=== PATIENT | male | born 1955 | race Caucasian/White ===

== ENCOUNTER 2016-11-29 16:01 | Emergency (ER) ==
[2016-11-29 16:12] VITALS: BP 156/73; TEMP 96.3; BMI 27.6
[2016-11-29] MEDS ORDERED: SODIUM CHLORIDE 1,000 ML IV STA (16:33)
--- NOTE | 2016-11-29 16:35 | ED.PDOC ---
General ED Provider: Dr. RED REAGAN Chief Complaint: Dizziness Stated Complaint: Nausea, vomiting several times since last night; lightheaded Time Seen by Physician: 16:20 Mode of Arrival: Stretcher Information Source: Patient Primary Care Provider: JORDYN COOMBS Nursing and Triage Documentation Reviewed and Agree: Yes Review of Systems - Review Of Systems Constitutional: Reports: Loss of appetite (nausea/dry heaving (since last night) ) Eyes: Reports: No symptoms Ears, Nose, Mouth, Throat: Reports: No symptoms Respiratory: Reports: No symptoms Cardiac: Reports: No symptoms GI: Reports: Nausea, Vomiting. Denies: Diarrhea : Reports: No symptoms Musculoskeletal: Reports: No symptoms Skin: Reports: No symptoms All Other Systems: Reviewed and Negative Past Medical History - Past Medical History Previously Healthy: Yes Endocrine: Reports: Dyslipidemia Cardiovascular: Reports: Hypertension Respiratory: Reports: Asthma Hematological: Reports: None Gastrointestinal: Reports: None Genitourinary: Reports: None Neuro/Psych: Reports: None Musculoskeletal: Reports: None Cancer: Reports: None - Surgical History General Surgical History: Reports: None - Family History Family History: Reports: Unknown - Social History Smoking Status: Former smoker Hx Substance Use: No Alcohol Screening: None Physical Exam - Physical Exam Appearance: Well-appearing Eyes: BRIANA, EOMI ENT: Oropharynx normal Neck: Supple (No carotid bruits) Respiratory: Breath sounds equal, Respirations nonlabored Cardiovascular: RRR, Pulses normal (Bilaterall radial pulses ) Skin: Warm, Dry, Normal color Psychiatric: Affect appropriate, Mood appropriate Interpretation - EKG Interpretation Time of EKG #1: 16:36 Rate: Normal (65) Rhythm: Sinus Ectopy: None Critical Care Note - Critical Care Note Total Time (mins): 25 Course - Course Hematology/Chemistry: 11/29/16 16:35 11/29/16 16:35 Orders, Labs, Meds: Lab Review 11/29/16 16:35 WBC 10.54 H RBC 4.69 L Hgb 14.9 Hct 42.6 MCV 90.8 MCH 31.8 H MCHC 35.0 RDW Coeff of Jorge 12.5 Plt Count 167 Immature Gran % (Auto) 0.4 Neut % (Auto) 80.5 Lymph % (Auto) 13.4 [place] % (Auto) 4.0 Eos % (Auto) 1.0 Baso % (Auto) 0.7 Immature Gran # (Auto) 0.0 Neut # 8.5 H Lymph # 1.4 [place] # 0.4 Eos # 0.1 Baso # 0.1 Sodium 142 Potassium 4.3 Chloride 104 Carbon Dioxide 27 Anion Gap 15.3 BUN 11 Creatinine 1.03 Estimated GFR (MDRD) 73.00 BUN/Creatinine Ratio 10.67 Glucose 122 H Calcium 9.6 Total Bilirubin 1.59 H AST 20 ALT 23 Alkaline Phosphatase 87 Troponin I < 0.0100 Total Protein 7.3 Albumin 4.2 Globulin 3.1 Albumin/Globulin Ratio 1.35 Orders Category Date Time Status EKG-(ED ONLY) Stat CARDIO 11/29/16 16:48 Completed CBC W/ AUTO DIFF Stat LAB 11/29/16 16:35 Completed COMPREHENSIVE METABOLIC PANEL Stat LAB 11/29/16 16:35 Completed TROPONIN I Stat LAB 11/29/16 16:35 Completed Meclizine HCl [Antivert] MEDS 11/29/16 18:08 Discontinued 25 mg .ROUTE .STK-MED ONE Meclizine HCl [Antivert] MEDS 11/29/16 18:05 Discontinued 25 mg PO ONCE STA Sodium Chloride 0.9% [Sodium Chloride] 1,000 ml MEDS 11/29/16 16:33 Discontinued IV BOLUS CHEST, 2 VIEWS PA & LAT Stat RADS 11/29/16 16:30 Completed Medications Discontinued Medications Generic Name Dose Route Start Last Admin Trade Name Freq PRN Reason Stop Dose Admin Sodium Chloride 1,000 mls @ 1,000 mls/hr 11/29/16 16:33 11/29/16 16:41 Sodium Chloride IV 11/29/16 17:32 1,000 mls/hr BOLUS STA Administration Meclizine HCl 25 mg 11/29/16 18:05 11/29/16 18:14 Antivert PO 11/29/16 18:06 25 mg ONCE STA Administration Vital Signs: Temp Pulse Resp BP Pulse Ox 11/29/16 16:06 96.3 F L 67 31 H 156/73 H 28 L Departure - Departure Time of Disposition: 18:08 Disposition: HOME SELF-CARE Discharge Problem: Gastritis, Vertigo Instructions: Gastritis (ED), Vertigo (ED) Condition: Good Pt referred to PMD for follow-up: Yes (Call for appointment) Additional Instructions: Take the Meclazine (Antivert) 2 to 4 hours before bedtime tonight; see if it helps with light headedness or vertigo/dizziness. If so may fill prescription tomorrow. Call Dr Coombs's office Thursday and advise them how you are doing. Allergies/Adverse Reactions: Allergies No Known Allergies Allergy (Verified 11/29/16 16:14) Home Medications: Ambulatory Orders Lisinopril/Hydrochlorothiazide [Lisinopril-Hctz 20-12.5 mg Tab] 20 mg PO DAILY 05/16/14 Rosuvastatin Calcium [Crestor] 20 mg PO DAILY 05/16/14 Albuterol Sulfate [Proair Respiclick] 90 mcg IH DIRECTED PRN 11/29/16 Disposition Discussed With: Patient, Family ()
[2016-11-29 16:46] LABS: BASOPHILS # (AUTO) 0.1 K/uL (0-0.2); BASOPHILS % (AUTO) 0.7 % (0.0-3.0); EOSINOPHILS # (AUTO) 0.1 K/ul (0.0-0.7); HEMATOCRIT 42.6 % (42.0-52.0); HEMOGLOBIN 14.9 g/dl (14.0-18.0); IMMATURE GRANULOCYTE % (AUTO) 0.4 % (0.0-5.0); LYMPHOCYTES # (AUTO) 1.4 K/uL (0.60-3.4); LYMPHOCYTES % (AUTO) 13.4 (10.0-50.0); MEAN CORPUSCULAR HEMOGLOBIN 31.8 pg (27.0-31.0); MEAN CORPUSCULAR VOLUME 90.8 fl (80.0-94.0); MONOCYTES # (AUTO) 0.4 K/uL (0.4-2.0); NEUTROPHILS # (AUTO) 8.5 K/ul (2.0-6.9); NEUTROPHILS % (AUTO) 80.5; PLATELET COUNT 167 10^3/uL (140-440); RED BLOOD COUNT 4.69 10^6/ul (4.70-6.10); WHITE BLOOD COUNT 10.54 K/ul (4.2-10.2)
[2016-11-29 17:12] LABS: ALANINE AMINOTRANSFERASE 23 U/L (12-78); ALBUMIN 4.2 g/dL (3.4-5.0); ALBUMIN/GLOBULIN RATIO 1.35; ALKALINE PHOSPHATASE 87 U/L (56-119); ANION GAP 15.3; ASPARTATE AMINO TRANSFERASE 20 U/L (15-37); BILIRUBIN,TOTAL 1.59 mg/dL (0.00-1.20); BLOOD UREA NITROGEN 11 mg/dL (7-18); BUN/CREATININE RATIO 10.67; CALCIUM 9.6 mg/dL (8.2-10.2); CARBON DIOXIDE 27 mmol/L (23-31); CHLORIDE 104 mmol/L (98-107); CREATININE 1.03 mg/dL (0.60-1.10); GLUCOSE 122 mg/dL (82-115); POTASSIUM 4.3 mmol/L (3.5-5.1); SODIUM 142 mmol/L (136-145); TOTAL PROTEIN 7.3 g/dL (5.8-8.1)
--- NOTE | 2016-11-29 18:03 | DI ---
EXAM: PA and lateral views of the chest HISTORY: Epigastric pain and nausea COMPARISON: Chest x-ray 02/06/2009 FINDINGS: The cardiomediastinal silhouette is normal. There is no pneumothorax or pleural effusion . There is no consolidation, nodule or mass. Calcified granulomas are unchanged from 2009. The os seous structures are stable. IMPRESSION: No acute cardiopulmonary process.
[2016-11-29] MEDS ORDERED: ANTIVERT PO STA (18:05)
[2016-11-29] MEDS ORDERED: ANTIVERT ONE (18:08)
== END 2016-11-29 18:18 | disposition home or self-care (01) ==
LOC: ED 16:01
DX: K29.70 Gastritis, unspecified, without bleeding (principal); R42 Dizziness and giddiness
CPT/HCPCS: 36415; 80053; 84484; 85025; 93005; 93010; 96360; 99283